=== PATIENT | female | born 1955 | race Caucasian/White ===

== ENCOUNTER 2018-07-16 12:19 | Emergency (ER) | payer MEDICAID ==
--- NOTE | 2018-07-16 12:54 | EDPHY ---
H & P Time Seen by Provider: 07/16/18 12:31 HPI/ROS: Chief complaint. Hip and leg pain HPI. Patient has right knee pain for the last 5 days. Patient had a knee replacement 3 years ago. She has been caring for her sick and gained weight. She is trying to increase exercise and walking secondary to weight gain. However she has now had knee pain for 5 days. No fall or injury. Increased activity. No obvious swelling or redness. No fever. Pain does seem to go up her right thigh ROS 10 systems were reviewed and negative with the exception of the elements mentioned in the history of present illness Past Medical/Surgical History: Knee replacement, hypertension, dyslipidemia Social History: , nonsmoker, no alcohol Smoking Status: Never smoked Physical Exam: General Appearance: Alert, no distress. Eyes: Pupils equal and round no pallor or injection. ENT, Mouth: Mucous membranes are moist. Respiratory: There are no retractions, lungs are clear to auscultation. Cardiovascular: Regular rate and rhythm. Gastrointestinal: Abdomen is soft and nontender, no masses, bowel sounds normal. Neurological: Awake and alert, sensory and motor exams grossly normal. Skin: Warm and dry, no rashes. Musculoskeletal: Neck is supple nontender. Extremities well-healed surgical scar from knee replacement. No obvious swelling or deformity. No erythema. Diffuse tenderness. Distal motor vascular sensitivity is intact Psychiatric: Patient is oriented X 3, there is no agitation. Constitutional: Initial Vital Signs Temperature (C) 36.6 C 07/16/18 12:22 Heart Rate 85 07/16/18 12:22 Respiratory Rate 16 07/16/18 12:22 Blood Pressure 115/79 07/16/18 12:22 O2 Sat (%) 96 07/16/18 12:22 O2 Delivery Mode Room Air Allergies/Adverse Reactions: No Known Allergies Allergy (Unverified 07/16/18 12:22) Home Medications: Medication Instructions Recorded Htn 07/16/18 Hydrocodone/APAP 5/325 [Morton 1 each PO Q4-6PRN PRN #10 tab 07/16/18 5/325 (*)] Medical Decision Making - Diagnostics Imaging Results: Imaging Impressions Femur X-Ray 07/16/18 13:01 Impression: Negative. No explanation for pain. Knee X-Ray 07/16/18 13:01 Impression: Negative. No fracture or hardware loosening. X-ray right knee shows no evidence of fracture or hardware loosening. Right femur is normal Procedures: Patient is placed in knee immobilizer. Post splint application reviewed by me shows good anatomic position and distal motor vascular sensitivity to be intact ED Course/Re-evaluation: Patient, her son, and I discussed imaging study results. We discussed treatment plan including criteria for return importance of follow-up and further evaluation. They expressed understanding and agreement Differential Diagnosis: This appears to be overuse injury to the right knee. No evidence of fracture or dislocation or hardware malfunction Departure - Departure Disposition: Home, Routine, Self-Care Clinical Impression: Strain of knee and leg, right Qualifiers: Encounter type: initial encounter Qualified Code(s): S86.911A - Strain of unspecified muscle(s) and tendon(s) at lower leg level, right leg, initial encounter Condition: Good Instructions: Knee Pain (ED), Knee Immobilizer (ED) Additional Instructions: Ice and elevation next 2-3 days Knee immobilizer for 1 week Ibuprofen 600 mg every 6 hr for pain. Hydrocodone in addition if necessary. Return for worsening symptoms Follow-up with orthopedist for continuing symptoms Referrals: NONE *PRIMARY CARE P,. [Primary Care Provider] - As per Instructions Shady Guillen MD [Medical Doctor] - 5-7 days, if not improved Prescriptions: Hydrocodone/APAP 5/325 [Morton 5/325 (*)] 1 each PO Q4-6PRN PRN #10 tab PRN Reason: Pain, Moderate
[2018-07-16 14:25] VITALS: BP 127/86
== END 2018-07-16 14:25 | disposition home or self-care (01) ==
DX: S86.911A Strain of unspecified muscle(s) and tendon(s) at lower leg level, right leg, initial encounter (principal); I10 Essential (primary) hypertension; E78.5 Hyperlipidemia, unspecified; X50.9XXA Other and unspecified overexertion or strenuous movements or postures, initial encounter; Y93.01 Activity, walking, marching and hiking; Y99.9 Unspecified external cause status; Z96.651 Presence of right artificial knee joint
CPT/HCPCS: L1830